=== PATIENT | male | born 1990 | race African-American/Black ===

== ENCOUNTER 2017-07-28 03:44 | Emergency (ER) | payer MEDICAID, OTHER ==
[~2017-07-28] VITALS: Ht 185.4 cm; Wt 80.0 kg
[2017-07-28] MEDS ORDERED: SODIUM CHLORIDE 0.9% 1,000 ML IV ONE (04:25)
[2017-07-28] MEDS ORDERED: TETANUS, DIPHTHERIA, PERTUSSIS VAC/PF 0.5ML (>7YR OLD) IM ONE (04:30)
[2017-07-28 05:06] LABS: BASOPHILS % 0.4 % (0.0-2.0); EOSINOPHILS % 0.6 % (0.0-5.0); HEMATOCRIT. 42.3 % (42.0-52.0); HEMOGLOBIN. 14.1 g/dL (14.0-18.0); LYMPHOCYTES % 10.6 % (20.0-50.0); MEAN CORPUSCULAR HEMOGLOBIN 28.6 pg (28.0-32.0); MEAN CORPUSCULAR VOLUME 85.7 fL (80.0-94.0); MONOCYTES % 10.2 % (2.0-8.0); NEUTROPHILS % 78.2 % (40.0-76.0); PLATELET 226 x1000/uL (130-400); RED BLOOD CELL COUNT 4.94 mill/uL (4.7-6.1); RED CELL DISTRIBUTION WIDTH 12.9 % (11.6-14.6)
[2017-07-28 05:14] LABS: PROTHROMBIN TIME 10.2 sec (9.4-11.6)
[2017-07-28 05:20] LABS: CARBON DIOXIDE 26 mEq/L (21-32); CHLORIDE 107 mEq/L (98-107)
[2017-07-28] MEDS ORDERED: LIDOCAINE HCL 1% 20ML VIAL (Pyxis) INJ INFIL ONE (06:45)
[2017-07-28] MEDS ORDERED: LIDOCAINE HCL/EPINEPHRINE 1%-EPI 1:100,000 30 ML VIAL INFIL ONE (06:45)
[2017-07-28 06:50] LABS: HEMATOCRIT. 41.7 % (42.0-52.0); HEMOGLOBIN. 14.4 g/dL (14.0-18.0); MEAN CORPUSCULAR HEMOGLOBIN 29.5 pg (28.0-32.0); MEAN CORPUSCULAR VOLUME 85.8 fL (80.0-94.0); MEAN PLATELET VOLUME 7.8 fl (7.4-10.4); PLATELET 230 x1000/uL (130-400); RED BLOOD CELL COUNT 4.86 mill/uL (4.7-6.1); RED CELL DISTRIBUTION WIDTH 12.8 % (11.6-14.6)
[2017-07-28 08:26] LABS: PLATELET ESTIMATE NORMAL
[2017-07-28 10:48] VITALS: BP 126/71
== END 2017-07-28 11:01 | disposition home or self-care (01) ==
LOC: EDBD 03:44 → ER 03:46
DX: S91.312A Laceration without foreign body, left foot, initial encounter (principal); S00.83XA Contusion of other part of head, initial encounter; S70.211A Abrasion, right hip, initial encounter; S40.211A Abrasion of right shoulder, initial encounter; S00.81XA Abrasion of other part of head, initial encounter; F17.210 Nicotine dependence, cigarettes, uncomplicated; Y04.0XXA Assault by unarmed brawl or fight, initial encounter; X99.8XXA Assault by other sharp object, initial encounter; Y93.89 Activity, other specified; Y92.488 Other paved roadways as the place of occurrence of the external cause
CPT/HCPCS: 12001; 36415; 70450; 70486; 71010; 72070; 72100; 72125; 72170; 73610; 73630; 80053; 82962; 83690; 85025; 85610; 85730; 86850; 86900; 86901; 90471; 90715; 96360; 99285; J3490; J7030; Z7610

== ENCOUNTER → 2022-02-26 | Emergency (ER) | payer SELFPAY ==
[~2022-02-26] VITALS: Ht 177.8 cm; Wt 82.0 kg
[~2022-02-26] MED LIST: IBUP-2028 MT; IBUPROFEN 400MG TABLET PO ONE; IBUPROFEN 400MG TABLET PO SCH
[2022-02-26 17:21] VITALS: BP 144/101
== END | disposition home or self-care (01) ==
LOC: ER 15:28
DX: M79.645 Pain in left finger(s) (principal); Y04.0XXA Assault by unarmed brawl or fight, initial encounter; Y93.89 Activity, other specified; Y92.89 Other specified places as the place of occurrence of the external cause
CPT/HCPCS: 29125; 73130; 99283